=== PATIENT | male | born 1995 | race Caucasian/White ===

== ENCOUNTER 2017-10-03 07:39 | Emergency (ER) | payer SELFPAY ==
[2017-10-03 08:04] VITALS: BP 143/63
[2017-10-03] MEDS ORDERED: NACL 0.9% 1000 ML 1,000 ML IV ONE ×3 (08:04→10:32)
[2017-10-03] MEDS ORDERED: ZOFRAN IV ONE (08:09)
[2017-10-03 08:21] LABS: Basophils % (Auto) 0.1 % (0.0-1.8); Hematocrit 45.5 % (35.5-45.6); Hemoglobin 15.8 gm/dl (11.8-15.2); Lymphocytes # (Auto) 0.7 K/mm3 (1.2-5.4); Lymphocytes % (Auto) 7.3 % (13.4-35.0); Mean Corpuscular HGB Conc 35 % (32-34); Mean Corpuscular Hemoglobin 35 pg (28-32); Mean Corpuscular Volume 101 fl (84-94); Monocytes # (Auto) 0.3 K/mm3 (0.0-0.8); Monocytes % (Auto) 2.9 % (0.0-7.3); Platelet Count 203 K/mm3 (140-440); Red Blood Count 4.51 M/mm3 (3.65-5.03); Red Cell Distribution Width 12.2 % (13.2-15.2)
[2017-10-03 08:39] LABS: Alanine Aminotransferase 16 units/L (7-56); Albumin 4.7 g/dL (3.9-5); BUN/Creatinine Ratio 13; Blood Urea Nitrogen 10 mg/dL (9-20); Calcium 9.6 mg/dL (8.4-10.2); Hemolysis Index 12
[2017-10-03] MEDS ORDERED: PEPCID IV ONE (09:05)
[2017-10-03] MEDS ORDERED: BENTYL IM ONE (09:05)
[2017-10-03] MEDS ORDERED: TORADOL IV ONE (09:05)
--- NOTE | 2017-10-03 09:07 | Emergency Department Report ---
Blank Doc - Documentation Documentation: Patient is a 21-year-old male who is presenting with 2 days of nausea vomiting diarrhea with left lower quadrant pain. Patient does not know any good cause of his symptoms. Patient states he has not been in contact with anyone sick and has not eaten anything he thought may have been contaminated. The patient denies fever. Brief physical exam patient is tender in the left lower quadrant with no rebound or guarding. lab studies to be performed and a CT of abdomen and pelvis were done to rule out surgical emergency.
--- NOTE | 2017-10-03 10:57 | Emergency Department Report ---
ED Abdominal Pain HPI - General Chief Complaint: Abdominal Pain Stated Complaint: STOMACH PAIN Time Seen by Provider: 10/03/17 09:01 Source: patient Mode of arrival: Ambulatory Limitations: No Limitations - History of Present Illness Initial Comments: tricia is a 21-year-old male who is presenting with 2 days of nausea vomiting diarrhea with left lower quadrant pain. Patient does not know any good cause of his symptoms. Patient states he has not been in contact with anyone sick and has not eaten anything he thought may have been contaminated. The patient denies fever. Patient denies any bloody diarrhea. Denies any urinary symptoms. Denies back pain. Pains after his first vomited. No alleviating factors. Pain is 8 out of 10 and crampy. No medication taken prior to coming to the hospital. MD Complaint: abdominal pain Onset/Timin -: days(s) Location: LL Radiation: none Migration to: no migration Severity: severe Severity scale (0 -10): 8 Quality: stabbing Consistency: constant Improves With: nothing Worsens With: nothing Context: other (unknown) Associated Symptoms: nausea, vomiting, diarrhea. denies: fever, chills, constipation, dysuria, hematemesis, hematochezia, melena, hematuria, anorexia, syncope Treatments Prior to Arrival: other (none) - Related Data Previous Rx's Medication Instructions Recorded Last Taken Type Dicyclomine [Bentyl] 40 mg PO Q8H 3 Days #9 tablet 10/03/17 Unknown Rx Promethazine [Phenergan TAB] 25 mg PO Q6HR PRN #16 tab 10/03/17 Unknown Rx Allergies Allergy/AdvReac Type Severity Reaction Status Date / Time No Known Allergies Allergy Unverified 10/03/17 08:04 ED Review of Systems ROS: Stated complaint: STOMACH PAIN Other details as noted in HPI Constitutional: denies: chills, fever Eyes: denies: eye pain, eye discharge, vision change ENT: denies: ear pain, throat pain, congestion Respiratory: denies: cough, shortness of breath, SOB with exertion, SOB at rest , stridor, wheezing Cardiovascular: denies: chest pain, palpitations, edema, syncope Gastrointestinal: abdominal pain, nausea, vomiting. denies: diarrhea, constipation, hematemesis, melena, hematochezia Genitourinary: denies: urgency, dysuria, frequency, hematuria, discharge Musculoskeletal: denies: back pain, joint swelling, arthralgia Skin: denies: rash, lesions Neurological: denies: headache, weakness, numbness, paresthesias, confusion, abnormal gait, vertigo ED Past Medical Hx - Past Medical History Previous Medical History?: No - Surgical History Past Surgical History?: No - Family History Family history: no significant - Social History Smoking Status: Current Every Day Smoker Substance Use Type: Marijuana - Medications Home Medications: Home Medications Medication Instructions Recorded Confirmed Last Taken Type Dicyclomine [Bentyl] 40 mg PO Q8H 3 Days #9 tablet 10/03/17 Unknown Rx Promethazine [Phenergan TAB] 25 mg PO Q6HR PRN #16 tab 10/03/17 Unknown Rx ED Physical Exam - General Limitations: No Limitations General appearance: alert, in no apparent distress - Head Head exam: Present: atraumatic, normocephalic, normal inspection - Eye Eye exam: Present: normal appearance, PERRL, EOMI Pupils: Present: normal accommodation - ENT ENT exam: Present: normal exam, normal orophraynx, mucous membranes moist, TM's normal bilaterally, normal external ear exam - Neck Neck exam: Present: normal inspection, full ROM. Absent: tenderness, meningismus, lymphadenopathy - Respiratory Respiratory exam: Present: normal lung sounds bilaterally. Absent: respiratory distress, chest wall tenderness - Cardiovascular Cardiovascular Exam: Present: normal rhythm, bradycardia, normal heart sounds. Absent: systolic murmur, diastolic murmur - GI/Abdominal GI/Abdominal exam: Present: soft, tenderness (left lower quadrant), normal bowel sounds. Absent: distended, guarding, rebound, rigid, organomegaly, mass, bruit, pulsatile mass, hernia - Extremities Exam Extremities exam: Present: normal inspection, full ROM, normal capillary refill , other (No cce. + 2 pulses in all extremities, no neurovascular compromise). Absent: tenderness, pedal edema, joint swelling, calf tenderness - Back Exam Back exam: Present: normal inspection, full ROM, other (ambulates without any difficulties). Absent: tenderness, CVA tenderness (R), CVA tenderness (L), muscle spasm, paraspinal tenderness, vertebral tenderness, rash noted - Neurological Exam Neurological exam: Present: alert, oriented X3, normal gait - Psychiatric Psychiatric exam: Present: normal affect, normal mood - Skin Skin exam: Present: warm, dry, intact, normal color. Absent: rash ED Course Vital Signs 10/03/17 10/03/17 10/03/17 08:00 09:24 09:27 Temperature 98 F Pulse Rate 42 L Respiratory 16 18 18 Rate Blood Pressure 143/63 O2 Sat by Pulse 98 99 Oximetry 10/03/17 09:54 Temperature Pulse Rate Respiratory 18 Rate Blood Pressure O2 Sat by Pulse Oximetry - Reevaluation(s) Reevaluation #1: 10/03/17 10:11 Patient given IV fluids 1 L and emergency room, Zofran 4 mg IV, Toradol 30 mg IV and Pepcid IMmg . He also received Bentyl 20 mg by mouth and he said he felt a little better but still has some nausea. Reevaluation #2: 10/03/17 11:35 Patient to receive a second liter of IV fluids 1 L, Maalox 15 mill by mouth, lidocaine 15 mill by mouth and Reglan 10 mg IM for nausea. I will reevaluate Reevaluation #3: 10/03/17 13:25 Patient stable and nausea and vomiting has resolved. He said he is feeling better. ED Medical Decision Making - Lab Data Result diagrams: 10/03/17 08:08 10/03/17 08:08 Lab Results 10/03/17 10/03/17 Range/Units 08:08 08:08 WBC 9.5 (4.5-11.0) K/mm3 RBC 4.51 (3.65-5.03) M/mm3 Hgb 15.8 H (11.8-15.2) gm/dl Hct 45.5 (35.5-45.6) % MCV 101 H (84-94) fl MCH 35 H (28-32) pg MCHC 35 H (32-34) % RDW 12.2 L (13.2-15.2) % Plt Count 203 (140-440) K/mm3 Lymph % (Auto) 7.3 L (13.4-35.0) % Snyder % (Auto) 2.9 (0.0-7.3) % Eos % (Auto) 0.0 (0.0-4.3) % Baso % (Auto) 0.1 (0.0-1.8) % Lymph # 0.7 L (1.2-5.4) K/mm3 Snyder # 0.3 (0.0-0.8) K/mm3 Eos # 0.0 (0.0-0.4) K/mm3 Baso # 0.0 (0.0-0.1) K/mm3 Seg Neutrophils % 89.7 H (40.0-70.0) % Seg Neutrophils # 8.5 H (1.8-7.7) K/mm3 Sodium 141 (137-145) mmol/L Potassium 4.0 (3.6-5.0) mmol/L Chloride 100.5 (98-107) mmol/L Carbon Dioxide 24 (22-30) mmol/L Anion Gap 21 mmol/L BUN 10 (9-20) mg/dL Creatinine 0.8 (0.8-1.5) mg/dL Estimated GFR > 60 ml/min BUN/Creatinine Ratio 13 % Glucose 162 H (75-100) mg/dL Calcium 9.6 (8.4-10.2) mg/dL Total Bilirubin 0.80 (0.1-1.2) mg/dL AST 18 (5-40) units/L ALT 16 (7-56) units/L Alkaline Phosphatase 80 (35-129) units/L Total Protein 7.6 (6.3-8.2) g/dL Albumin 4.7 (3.9-5) g/dL Albumin/Globulin Ratio 1.6 % Lab Results 10/03/17 10/03/17 10/03/17 Range/Units 08:08 08:08 11:17 WBC 9.5 (4.5-11.0) K/mm3 RBC 4.51 (3.65-5.03) M/mm3 Hgb 15.8 H (11.8-15.2) gm/dl Hct 45.5 (35.5-45.6) % MCV 101 H (84-94) fl MCH 35 H (28-32) pg MCHC 35 H (32-34) % RDW 12.2 L (13.2-15.2) % Plt Count 203 (140-440) K/mm3 Lymph % (Auto) 7.3 L (13.4-35.0) % Snyder % (Auto) 2.9 (0.0-7.3) % Eos % (Auto) 0.0 (0.0-4.3) % Baso % (Auto) 0.1 (0.0-1.8) % Lymph # 0.7 L (1.2-5.4) K/mm3 Snyder # 0.3 (0.0-0.8) K/mm3 Eos # 0.0 (0.0-0.4) K/mm3 Baso # 0.0 (0.0-0.1) K/mm3 Seg Neutrophils % 89.7 H (40.0-70.0) % Seg Neutrophils # 8.5 H (1.8-7.7) K/mm3 Sodium 141 (137-145) mmol/L Potassium 4.0 (3.6-5.0) mmol/L Chloride 100.5 (98-107) mmol/L Carbon Dioxide 24 (22-30) mmol/L Anion Gap 21 mmol/L BUN 10 (9-20) mg/dL Creatinine 0.8 (0.8-1.5) mg/dL Estimated GFR > 60 ml/min BUN/Creatinine Ratio 13 % Glucose 162 H (75-100) mg/dL Calcium 9.6 (8.4-10.2) mg/dL Total Bilirubin 0.80 (0.1-1.2) mg/dL AST 18 (5-40) units/L ALT 16 (7-56) units/L Alkaline Phosphatase 80 (35-129) units/L Total Protein 7.6 (6.3-8.2) g/dL Albumin 4.7 (3.9-5) g/dL Albumin/Globulin Ratio 1.6 % Urine Color Yellow (Yellow) Urine Turbidity Clear (Clear) Urine pH 6.0 (5.0-7.0) Ur Specific [place] 1.015 (1.003-1.030) Urine Protein 30 mg/dl (Negative) mg/dL Urine Glucose (UA) Negative (Negative) mg/dL Urine Ketones Trace (Negative) mg/dL Urine Blood Moderate A (Negative) Urine Nitrite Negative (Negative) Urine Bilirubin Negative (Negative) Urine Urobilinogen < 2.0 (<2.0) mg/dL Ur Leukocyte Esterase Negative (Negative) Urine WBC (Auto) < 1.0 (0.0-6.0) /HPF Urine RBC (Auto) 1.0 (0.0-6.0) /HPF Urine Mucus Few /HPF - Radiology Data Radiology results: report reviewed CT scan of the abdomen and pelvis with IV contrast dictated by radiologist and report reviewed by myself. Please see report below Patient: NICKY MERCHANT MR#: [id number] : 1995 Acct:[id number] Age/Sex: 21 / M ADM Date: 10/03/17 Loc: ED Attending Dr: Ordering Physician: ANANT LYONS MD Date of Service: 10/03/17 Procedure(s): CT abdomen pelvis w con Accession Number(s): [id number] cc: ANANT LYONS MD CT scan of abdomen and pelvis with IV contrast: History: Left lower quadrant pain nausea and vomiting and diarrhea. Findings: Normal lung bases. No pleural or pericardial effusion. Normal liver. Pericholecystic fluid noted however gallbladder wall does not appear thickened and no calculi seen within the gallbladder. Normal pancreas. Calcified granuloma spleen. Normal adrenals, kidneys and bladder. No free intraperitoneal fluid or air. No evidence of adenopathy. Normal aorta. No evidence of diverticulitis or appendicitis. No bowel distention or wall thickening. Impression: Nonspecific pericholecystic fluid. If clinically indicated sonographic examination. Transcribed By: PTP Dictated By: JAMI RILEY MD Electronically Authenticated By: JAMI RILEY MD Signed Date/Time: 10/03/17 1050 DD/ 1045 TD/TT: 10/03/17 1050 - Medical Decision Making This is a 21-year-old male here report that he is having abdominal pain to his left lower quadrant with nausea and vomiting and diarrhea for 2 days. Patient to be evaluated. Patient was admitted by Dr. Lyons and orders [facility]. Patient is examined by myself and he has mild tenderness to lower abdomen without any guarding or rebound. Back exam is normal. CBC stable with some mild abnormalities in values, CMP is stable and urinalysis with trace ketone and moderate amount of blood but no bacteria or white blood cell. CT scan IV contrast of the abdomen and pelvis was dictated by radiologist's report reviewed by myself and no acute findings. I discussed laboratory results and CT scan results the patient and he voiced understanding. He does not have a primary care physician and I told him he will need to follow up with primary care physician in 3 days. Abdominal pain-resolved. Patient given Toradol 30 mg IV and Bentyl 20 mg IM and I will discharge him home and Bentyl Nausea vomiting and diarrhea.-Patient was given 2 L of normal saline and orally challenge in emergency room with water and tolerated that well. He was given Zofran 4 mg IV, Reglan 10 mg IV and Pepcid 20 mg IV which relieved his nausea. I will send him home on Phenergan. Patient had no episode of diarrhea while in emergency room. He had one episode of vomiting prior to medication but since medication he has been fine. microscopic Hematuria- referral to [facility] I educated patient on medication, diagnosis, treatment plan and need to follow up Discharged home with his family in stable condition. Vital signs are stable he is afebrile, nausea vomiting and abdominal pain has resolved. I discussed with him that he needs to increase his fluid intake and he voiced understanding. Patient will be referred to [facility] as he does not have a primary care and also to irrigation equipment mechanic and Urologist - Differential Diagnosis pancreatitis, cholecystitis, pyelo, UTI, appendicitis, colitis, enteritis Critical care attestation.: If time is entered above; I have spent that time in minutes in the direct care of this critically ill patient, excluding procedure time. ED Disposition Clinical Impression: Nausea vomiting and diarrhea, Microscopic hematuria Abdominal pain Qualifiers: Abdominal location: lower abdomen, unspecified Qualified Code(s): R10.30 - Lower abdominal pain, unspecified Disposition: DC-01 TO HOME OR SELFCARE Is pt being admited?: No Does the pt Need Aspirin: No Condition: Stable Instructions: Acute Nausea and Vomiting (ED), Abdominal Pain (ED), Acute Hematuria (ED), Acute Diarrhea (ED), Nutrition Tips for Relief of Diarrhea (ED) Additional Instructions: Follow-up with [facility] as instructed. Follow-up with [place] irrigation equipment mechanic for abdominal pain, nausea vomiting and diarrhea Follow-up urologist regarding microscopic blood and urine Follow up bland diet such as bananas, rice, applesauce and toast for the next 72 hours and avoid caffeinated beverages and spicy food to allow use stomach lining to heal If experience abdominal pain, back pain, fever and/or chills or nausea or vomiting, dizziness, continuous diarrhea for more than 10 per day, weakness please return to the emergency room Take Bently for pain any abdomen Following discharge instruction and food to eat with diarrhea. Phenergan for nausea can cause drowsiness so please do not drive or operate heavy machinery while taking this medication Referrals: PRIMARY CARE, [Primary Care Provider] - 10/06/17 [facility] [Outside] - 10/06/17 [facility] [Provider Group] - 10/06/17 MEENA KENNEY MD [Staff Physician] - 10/06/17 Forms: Work/School Release Form(ED), Accompanied Note
--- NOTE | 2017-10-03 11:13 | Cat Scan Report ---
CT scan of abdomen and pelvis with IV contrast: History: Left lower quadrant pain nausea and vomiting and diarrhea. Findings: Normal lung bases. No pleural or pericardial effusion. Normal liver. Pericholecystic fluid noted however gallbladder wall does not appear thickened and no calculi seen within the gallbladder. Normal pancreas. Calcified granuloma spleen. Normal adrenals, kidneys and bladder. No free intraperitoneal fluid or air. No evidence of adenopathy. Normal aorta. No evidence of diverticulitis or appendicitis. No bowel distention or wall thickening. Impression: Nonspecific pericholecystic fluid. If clinically indicated sonographic examination.
[2017-10-03] MEDS ORDERED: ALUM-MAG HYDROX-SIMETH 200-200-20MG/5ML PO ONE (11:30)
[2017-10-03] MEDS ORDERED: REGLAN IV ONE (11:30)
[2017-10-03] MEDS ORDERED: LIDOCAINE VISCOUS 2% PO ONE (11:30)
[2017-10-03 12:32] LABS: Bilirubin,Urine Negative (Negative); Blood,Urine Moderate (Negative); Color,Urine Yellow (Yellow)
[2017-10-03 12:33] LABS: Urobilinogen,Urine < 2.0 mg/dL (<2.0)
[2017-10-03 12:55] LABS: Mucus,Urine FEW /HPF; WBC,Urine < 1.0 /HPF (0.0-6.0)
== END 2017-10-03 14:04 | disposition home or self-care (01) ==
LOC: ED 07:39
DX: R10.32 Left lower quadrant pain (principal); R11.2 Nausea with vomiting, unspecified; R19.7 Diarrhea, unspecified; R31.29 Other microscopic hematuria; F17.200 Nicotine dependence, unspecified, uncomplicated; F12.10 Cannabis abuse, uncomplicated
CPT/HCPCS: 36415; 74177; 80053; 81001; 85025; 96361; 96372; 96374; 96375; 99284; J0500; J1885; J2405; J2765; J7030; Q9967